=== PATIENT | female | born 1945 | race Caucasian/White ===

== ENCOUNTER 2017-06-15 13:10 | Day surgery (SDC) | payer MEDICARE ==
--- NOTE | 2017-06-15 06:25 | History and Physical Report ---
DATE: 06/15/2017. CHIEF COMPLAINT: This patient presents with a history of an intractable lumbar radiculitis. On May 30, 2017, a spinal cord stimulator trial was conducted with 75 to 85 percent pain control. Due to the failure of all therapy and the success of the trial, the patient presents today for implantation of a permanent system. PAST MEDICAL HISTORY: Hypertension. PAST SURGICAL HISTORY: Gallbladder surgery, hysterectomy, knee replacement, carpal tunnel release. EMPLOYMENT STATUS: Retired. MEDICATIONS ON ADMISSION: List to be provided. ALLERGIES: None. REVIEW OF SYSTEMS: The patient is appropriate and in no acute distress. The remainder of the systems review shows glasses, gastritis, degenerative arthritis , fibromyalgia, and depression. SOCIAL HISTORY: Caffeine. FAMILY HISTORY: Diabetes, thyroid disease, hypertension, cancer. PHYSICAL EXAMINATION: General: Height is 5 feet, 2 inches. Weight is 180 pounds. Vital Signs: Unavailable. HEENT: Within normal limits. Lungs: Clear. Heart: Regular rate and rhythm. Abdomen: Nontender. Musculoskeletal: Examination of the musculoskeletal system shows diffuse tenderness throughout the lumbar spine. Range of motion produces pain throughout both legs. Ambulation: No assistive device utilized. Neurologic: Cranial nerves are intact. IMPRESSION: LUMBAR RADICULITIS, ICD-10 CODE M54.16 AND M54.17. PLAN: The patient is here for implantation of a permanent spinal cord stimulator after a successful trial and due to the failure of all conservative therapies. The potential risks, side effects, and complications have been carefully reviewed and discussed including dural puncture, spinal headache, nerve root injury, and spinal cord injury. A operations mgr's CD ROM and information have been provided and reviewed by the patient. All questions have been answered. We will consider the procedure to be outpatient, although an overnight stay will be evaluated. DEREK OTTO D.O. Date & Time JOB NUMBER: [id number] cc: Adriano Spicer
[~2017-06-15 13:10] MED LIST: ACETAMINOPHEN 1,000 MG/100 ML BTL IV ONE; ACETAMINOPHEN 325 MG TAB PO PRN; AL HYDROX/MAG HYDROX 30ML UD PO PRN; DIPHENHYDRAMINE HCL 25 MG CAPSULE PO PRN; DIPHENHYDRAMINE HCL IV 50 MG/ML VIAL IVP PRN; FAMOTIDINE 20MG TABLET PO ONE; HYDROCODONE/APAP 7.5/325MG TABLET PO PRN; HYDROMORPHONE HCL 1 MG/ML CPJ IM PRN; HYDROMORPHONE HCL 2 MG/ML VIAL IM PRN; MECLIZINE 25 MG TABLET PO ONE; METOCLOPRAMIDE 10 MG TABLET PO ONE; METOCLOPRAMIDE 10 MG TABLET PO PRN; METOCLOPRAMIDE HCL 10 MG/2 ML VIAL IVP PRN; OXYCODONE/APAP 10MG-325MG TABLET PO PRN; SENNOSIDES/DOCUSATE SODIUM UD CAPSULE PO PRN; TEMAZEPAM 15 MG CAPSULE PO PRN; VANCOMYCIN HCL 1,000 MG in 0.9 % SODIUM CHLORIDE 250ML 250 ML IVPB ONE
[2017-06-15] MEDS ORDERED: VANCOMYCIN HCL 500 MG VIAL IV ONE (13:11)
[2017-06-15] MEDS ORDERED: *PACU ONLY* KETAMINE HCL 10 MG/ML (20ML) VIAL IV ONE (13:11)
[2017-06-15] MEDS ORDERED: FLUMAZENIL 1MG/10ML VIAL IV ONE (13:11)
[2017-06-15] MEDS ORDERED: MIDAZOLAM HCL 2MG/2ML VIAL IV ONE (13:11)
[2017-06-15] MEDS ORDERED: LIDOCAINE 2% MDV (20MG/ML) 20ML VIAL IV ONE (13:11)
[2017-06-15] MEDS ORDERED: BUPIVACAINE 0.75% W/EPI MPF 30ML VIAL IVP ONE (13:11)
[2017-06-15] MEDS ORDERED: PROPOFOL 10 MG/ML VIAL IV ONE (13:11)
[2017-06-15] MEDS ORDERED: FENTANYL PF 100MCG/2ML VIAL IV ONE (13:11)
[2017-06-15] MEDS ORDERED: LIDOCAINE 1% W/EPI 1:200,000 MPF 30ML SQ ONE (13:11)
[2017-06-15] MEDS ORDERED: CLONAZEPAM 1MG TABLET PO PRN (16:54)
[2017-06-15] MEDS: HYDROCODONE/APAP 7.5/325MG TABLET PO PRN ×2 (18:59→21:53)
[2017-06-15] MEDS: 0.9 % SODIUM CHLORIDE 10ML SYR IVP SCH (21:51)
[2017-06-15] MEDS: METFORMIN 500 MG TABLET PO SCH (21:55)
[2017-06-15] MEDS ORDERED: TRAZODONE 50 MG TABLET PO SCH (22:00)
[2017-06-15] MEDS ORDERED: BENAZEPRIL 20 MG TABLET PO SCH (22:00)
[2017-06-16] MEDS ORDERED: VANCOMYCIN HCL 1,000 MG in 0.9 % SODIUM CHLORIDE 250ML 250 ML IVPB ONE (02:30)
[2017-06-16] MEDS: 0.9 % SODIUM CHLORIDE 10ML SYR IVP SCH (03:19)
[2017-06-16] MEDS: HYDROCODONE/APAP 7.5/325MG TABLET PO PRN (03:26)
[2017-06-16] MEDS: OXYCODONE/APAP 10MG-325MG TABLET PO PRN ×2 (05:51→09:38)
[2017-06-16] MEDS ORDERED: LEVOTHYROXINE SODIUM 100 MCG TABLET PO SCH (07:00)
[2017-06-16] MEDS: METFORMIN 500 MG TABLET PO SCH (08:40)
[2017-06-16] MEDS ORDERED: SIMVASTATIN 10MG TABLET PO SCH (10:00)
[2017-06-16] MEDS ORDERED: PIOGLITAZONE HCL 15 MG TABLET PO SCH (10:00)
[2017-06-16] MEDS ORDERED: DULOXETINE HCL 30 MG CAPSULE.DR PO SCH (10:00)
--- NOTE | 2017-06-16 16:31 | Operative Note - [place] ---
DATE OF SURGERY: 06/15/17 PREOPERATIVE DIAGNOSIS: LUMBAR RADICULITIS, ICD-10 CODE = M54.16 AND M54.17. OPERATION: 1. FLUOROSCOPICALLY-GUIDED EPIDURAL ACCESS RIGHT OF THE MIDLINE T10-11. PLACEMENT OF SPINAL CORD STIMULATOR LEAD 1, A [employer] INFINION 16 WITH 16 ELECTRODES POSITIONED LEFT T7. 2. FLUOROSCOPICALLY-GUIDED EPIDURAL ACCESS RIGHT T11-12. PLACEMENT OF SPINAL CORD STIMULATOR LEAD 2, A [employer] INF[employer] 16 WITH 16 ELECTRODES POSITIONED RIGHT T7. 3. COMPLEX PROGRAMMING LEAD 1 OVER 20 MINUTES FOLLOWED BY COMPLEX PROGRAMMING OF LEAD 2 OVER 20 MINUTES. 4. INCISION, SUBCUTANEOUS DISSECTION, AND ANCHORING OF LEAD 1 AND LEAD 2 TO SUPRASPINOUS FASCIA USING A [employer] LOCKING ANCHOR AND NONABSORBABLE SUTURE. 5. INCISION, SUBCUTANEOUS DISSECTION, AND CREATION OF A SUBCUTANEOUS POUCH AT RIGHT POSTERIOR GLUTEAL MARGIN FOR PLACEMENT OF GENERATOR IDENTIFIED A [employer] PROGRAMMABLE RECHARGEABLE. 6. TUNNELING BETWEEN LEAD AND GENERATOR POUCH, PLACEMENT OF EXTERNAL PORTION OF LEAD 1 AND LEAD 2 INTO GENERATOR POUCH, EACH LEAD INTERFACED WITH GENERATOR. 7. SECURING GENERATOR TO POSTERIOR FASCIA USING NONABSORBABLE SUTURE. PLACEMENT OF LEADS INTO POUCH. CLOSURE OF BOTH INCISIONS, VICRYL FOR FASCIA AND A RUNNING SUBCUTICULAR VICRYL FOR SKIN. DERMABOND CLOSURE. 8. COMPLEX PROGRAMMING INTERNAL GENERATOR HOME USE, RECOVERY ROOM, 20 MINUTES. SURGEON: DEREK OTTO D.O. ANESTHESIA: LOCAL SEDATION. ANESTHESIA PROVIDER: ADELFO JUDGE CRNA. INDICATION: This patient presents with a history of intractable lumbar radiculitis. Due to the failure of therapy, a stimulator trial was conducted with 75 plus percent pain control. Due to the failure of all therapies and the successful of the stimulator trial, the patient presents today for implantation of a permanent system. PROCEDURE: Intravenous line, vital sign monitoring, IV sedation, prepped and draped in sterile technique. Under imaging, the epidural interspace at T10-11 and 11-12 were identified and marked on the right. Skin infiltrated using two separate curved access Epimed needles with [id number]. At 10-11, spinal cord stimulator lead 1, a [employer] Infinion 16 with 16 electrodes, positioned left of midline T7. With the epidural access at 11-12 same technique , spinal cord stimulator lead 2, a [employer] Infinion 16 with 16 electrodes positioned right at T7. Complex programming of lead 1 over 20 minutes followed by complex programming of lead 2 over 20 minutes ultimately resulting in patterns of stimulation across the back into both legs; patient indicating we were in all of the areas of the pain. She was given the option to continue to program, implant, or remove; she opted to implant. Questions repeated with the same response. The skin above and below both needles infiltrated, an incision made, and subcutaneous dissection was conducted to the supraspinous fascia. Each lead was then anchored to the fascia after the needles removed with a [employer] and nonabsorbable suture. At the right posterior gluteal margin, a site picked by the patient for the generator, skin infiltrated, incision made, and subcutaneous dissection was conducted to form a pouch of suitable size and depth for the generator identified as [employer] Programmable Rechargeable. The skin infiltrate, incision made, and subcutaneous dissection was conducted. A tunneling tool was then used to carry the leads into the generator pouch and each lead was interfaced with the generator. Antibiotic irrigation and Bovie for hemostasis. The generator was placed into the pouch and secured to the fascia with nonabsorbable suture. The two leads were placed into their own pouch and then both incisions were closed Vicryl for fascia and a running subcuticular Vicryl for skin. A Dermabond closure to approximate the edges of both wounds was performed. She was transported to the Recovery Room stable showing no side- effects from the procedure or the sedation. When fully awake and alert, complex programming of the internal generator was then performed over 20 minutes re- establishing stimulation. She will be kept overnight for observation because of history and time of day. DISCHARGE INSTRUCTIONS IN THE MORNIN. Sites to remain clean and dry although the Dermabond will allow showering. 2. Standard medications resumed including Levaquin, the antibiotic, 500 mg once a day for 14 days. 3. The office will contact the patient in 24-48 hours to schedule an appointment in 5-7 days to evaluate the sites. Until then, she should keep her activities low. All other instructions provided, numbers to contact, problems given, she was then prepared for discharged. cc: Dr. Aaron Telles JOB NUMBER: [id number] MTDD
--- NOTE | 2017-06-17 07:18 | RADIOLOGY REPORT ---
EXAM: AP LUMBAR SPINE HISTORY: PAIN PUMP STIMULATOR PLACEMENT. TECHNIQUE: AP view of the lumbar spine was obtained. Comparison: None. FINDINGS: Two stimulator leads overlie the thoracic spine extending cephalad to at least the upper T6 level. Multilevel disk disease of the thoracic and lumbar spine. IMPRESSION: STIMULATOR LEADS OVERLYING THE THORACIC SPINE ABOVE. JOB NUMBER: [id number] MTDD
== END 2017-06-16 09:50 | disposition home or self-care (01) ==
LOC: SUR 13:10 → MEDSURG 16:41 → SUR 06-16 09:50
PROVIDERS: ATTEND Pain Medicine Interventional Pain Medicine
DX: M54.16 Radiculopathy, lumbar region (principal); M54.17 Radiculopathy, lumbosacral region; I10 Essential (primary) hypertension; E11.9 Type 2 diabetes mellitus without complications; Z79.4 Long term (current) use of insulin; Z79.84 Long term (current) use of oral hypoglycemic drugs; E78.00 Pure hypercholesterolemia, unspecified; E03.9 Hypothyroidism, unspecified
CPT/HCPCS: 95972; 72020; 63685; 63650 ×2; 01936; J3370 ×2; J3010; J3490; J7050